=== PATIENT | male | born 1950 | race Caucasian/White ===

== ENCOUNTER → 2017-04-16 | Day surgery (SDC) | payer OTHER ==
[~2017-04-16] MED LIST: FENTANYL CITRATE/PF 100MCG/2 ML INJ ONE; FINASTERIDE5 MG PO; FLOMAX0.4 MG PO; GLUCAGON FOR INJ 1 MG VIAL ONE; HYOSCYAMINE SULFATE 0.5 MG/ML AMP ONE; LIDOCAINE HCL 2% LOCAL INJ 5 ML SDV VIAL INJ ONE; LISINOPRIL10 MG PO; MIDAZOLAM HCL 2 MG/2 ML VIAL ONE; PROPOFOL IV EMULSION 10 MG/ML 50 ML VIAL ONE; SIMVASTATIN20 MG PO; ULTRAM50 MG PO
--- NOTE | 2017-04-16 17:31 | Operative Report ---
DATE OF PROCEDURE: April 16, 2017 PROCEDURE PERFORMED: Colonoscopy and polypectomy with biopsies. INDICATIONS FOR COLONOSCOPY: Colorectal cancer screening. MEDICATION: Patient was done under MAC. Please see anesthesiologist's note. PROCEDURE: With the patient in the left lateral decubitus position, the flexible fiberoptic Olympus colonoscope was inserted into the rectum with ease and advanced all the way to the cecum. Prep overall was suboptimal with retained stools in the colon. A minute submucosal nodule was noted in the cecum and that was biopsied. The scope was then withdrawn slowly. Whatever was visualized of the mucosa overlying the ascending colon appeared to be within normal limits. One minute polyp was hot biopsied from the transverse colon. The rest of the transverse, descending, sigmoid and rectum whatever was visualized appeared to be within normal limits. The scope was then retroflexed into the distal rectum, and small internal hemorrhoids were noted, none of which was actively bleeding. The scope was then straightened out. The rectosigmoid area as well as the distal rectal area were decompressed. The scope was subsequently withdrawn. Patient tolerated the procedure well. IMPRESSION 1. Suboptimal prep. 2. Cecal minute submucosal nodule, biopsied. 3. Transverse colon polyp, hot biopsied. 4. Internal hemorrhoids, none actively bleeding. PLAN: Follow up histology. Initiate high-fiber, low-fat diet. Initiate high-fiber supplement. Patient will need a followup colonoscopy in 3 years. Job#: [id number] MH cc:FLOYD GOLDEN MD
== END | disposition home or self-care (01) ==
LOC: OR 13:04
PROVIDERS: ATTEND Internal Medicine Gastroenterology
DX: Z12.11 Encounter for screening for malignant neoplasm of colon (principal); K63.5 Polyp of colon; K63.89 Other specified diseases of intestine; K64.8 Other hemorrhoids; I10 Essential (primary) hypertension; N40.0 Benign prostatic hyperplasia without lower urinary tract symptoms
CPT/HCPCS: 45380; 45384; J1610; J1980; J2001; J2250

== ENCOUNTER → 2017-12-10 | Outpatient (CLI) | payer MEDICARE ==
[~2017-12-10] MED LIST changes: -FENTANYL CITRATE/PF 100MCG/2 ML INJ ONE; +GADOBENATE DIMEGLUMINE 1 ML IV ONE; -GLUCAGON FOR INJ 1 MG VIAL ONE; -HYOSCYAMINE SULFATE 0.5 MG/ML AMP ONE; +LACTATED RINGER'S 1,000 ML ONE; -LIDOCAINE HCL 2% LOCAL INJ 5 ML SDV VIAL INJ ONE; -MIDAZOLAM HCL 2 MG/2 ML VIAL ONE; +PROPOFOL IV EMULSION 10 MG/ML 20 ML VIAL ONE; -PROPOFOL IV EMULSION 10 MG/ML 50 ML VIAL ONE; +SODIUM CHLORIDE 0.9% 100 ML 100 ML ONE
[2017-12-10 15:39] LABS: BLOOD UREA NITROGEN 27 mg/dL (7-26); BUN/CREATININE RATIO 27 (6-25); CREATININE, SERUM 0.99 mg/dL (0.72-1.25); EST GLOMERULAR FILTRATION RATE > 60 ML/MIN (60-)
== END ==
LOC: MRI 14:37
PROVIDERS: ATTEND Neurological Surgery
DX: M43.16 Spondylolisthesis, lumbar region (principal); M48.061 Spinal stenosis, lumbar region without neurogenic claudication
CPT/HCPCS: 36415; 72158; 82565; 84520; J7120

== ENCOUNTER → 2020-08-16 | Day surgery (SDC) | payer MEDICARE ==
[~2020-08-16] MED LIST changes: +CLEOCIN HCL300 MG PO; +FENTANYL CITRATE/PF 100MCG/2 ML INJ ONE; -GADOBENATE DIMEGLUMINE 1 ML IV ONE; +GLUCAGON FOR INJ 1 MG VIAL ONE; +HYOSCYAMINE SULFATE 0.5 MG/ML INJ ONE; -LACTATED RINGER'S 1,000 ML ONE; +LIDOCAINE HCL 2% LOCAL INJ 5 ML SDV VIAL INJ ONE; +MIDAZOLAM HCL 2 MG/2 ML VIAL ONE; -SODIUM CHLORIDE 0.9% 100 ML 100 ML ONE
[2020-08-16 09:25] VITALS: BP 102/61
== END | disposition home or self-care (01) ==
LOC: OR 06:06
PROVIDERS: ATTEND Internal Medicine Gastroenterology
DX: Z09 Encounter for follow-up examination after completed treatment for conditions other than malignant neoplasm (principal); Z86.010 Personal history of colon polyps; K57.30 Diverticulosis of large intestine without perforation or abscess without bleeding; K64.8 Other hemorrhoids; I10 Essential (primary) hypertension; E78.5 Hyperlipidemia, unspecified
CPT/HCPCS: 45378; J1610; J1980; J2001; J2250; J2704; J3010